=== PATIENT | male | born 1940 | race Caucasian/White ===

== ENCOUNTER 2016-09-27 08:00 | Outpatient (CLI) | payer MEDICARE ==
[2016-09-27 18:45] LABS: EOSINOPHILS # (AUTO) 0.1 10^3/uL (0.0-0.7); EOSINOPHILS % (AUTO) 2.8 %; HGB - HEMOGLOBIN 14.4 g/dL (14.0-18.0); LYMPHOCYTES # (AUTO) 1.4 10^3/uL (1.5-3.5); LYMPHOCYTES % (AUTO) 26.9 %; MEAN CORPUSCULAR HEMOGLOBIN 32.4 pg (27.0-31.0); MEAN CORPUSCULAR HGB CONC 33.4 g/dL (32.0-36.0); MEAN PLATELET VOLUME 8.6 fL (7.4-11.4); MONOCYTES # (AUTO) 0.6 10^3/uL (0.0-1.0); MONOCYTES % (AUTO) 11.8 %; NEUTROPHILS # (AUTO) 2.9 10^3/uL (1.5-6.6); NEUTROPHILS % (AUTO) 57.5 %; NUCLEATED RED BLOOD CELLS AUTO 0.2 /100WBC; RED BLOOD COUNT 4.44 10^6/uL (4.70-6.10); RED CELL DISTRIBUTION WIDTH 14.1 % (12.0-15.0); UNCORRECTED WHITE BLOOD COUNT 5.1 x10^3/uL; WHITE BLOOD COUNT 5.1 x10^3/uL (4.8-10.8)
[2016-09-27 19:37] LABS: ALBUMIN/GLOBULIN RATIO 1.5 (1.0-2.2); BILIRUBIN,TOTAL 0.4 mg/dL (0.2-1.0); BUN - BLOOD UREA NITROGEN 14 mg/dL (6-20); CALCIUM 8.9 mg/dL (8.5-10.3); CARBON DIOXIDE - CO2 25 mmol/L (21-32); CHLORIDE 104 mmol/L (101-111); CREATININE 1.1 mg/dL (0.6-1.2); GFR - MDRD 65 (>89); GLUCOSE 88 mg/dL (70-100); IRON 90 ug/dL (45-182); POTASSIUM 4.6 mmol/L (3.5-5.0); SODIUM 135 mmol/L (135-145); TOTAL IRON BINDING CAPACITY 276 ug/dL (250-450); TOTAL PROTEIN 6.6 g/dL (6.7-8.2); TRANSFERRIN 197 mg/dL (180-329)
[2016-09-27 20:20] LABS: THYROID STIMULATING HORMONE 4.69 uIU/mL (0.34-5.60)
== END 2016-09-27 08:01 | disposition home or self-care (01) ==
LOC: LAB.S 08:00
PROVIDERS: ATTEND Nurse Practitioner Family
DX: I10 Essential (primary) hypertension (principal); R42 Dizziness and giddiness
CPT/HCPCS: 36415; 80053; 82607; 83540; 84443; 84466; 85025

== ENCOUNTER 2017-07-30 14:28 | Emergency (ER) | payer MEDICARE ==
[2017-07-30] MEDS ORDERED: MECLIZINE 12.5 MG TABLET PO STA (15:14)
--- NOTE | 2017-07-30 15:20 | ED Physician Documentation ---
History of Present Illness - Stated complaint Stated Complaint: GLF - Chief complaint Chief Complaint: Neuro - History obtained from History obtained from: Patient, Family (daughter) - History of Present Illness Timing: How many days ago (4) Pain level max: 5 Pain level now: 4 Improved by: remaining still Worsened by: moving - Additonal information Additional information: Patient is a 77-year-old male who lives at home has been feeling off balance for the past 4 days. States that this is happened to him several times in the past and has been told that the "fluid in his ears is out of alignment". He states that it only occurs if he turns his head briskly to one side or the other. He does state that he fell yesterday and bruised his ribs. Does not have much pain there today. He also struck his head at that time. No loss of consciousness. No vomiting. Brought in by his daughter today. He denies any neck or back pain. Denies any numbness or tingling. Review of Systems Ten Systems: 10 systems reviewed and negative Constitutional: denies: Fever, Chills Eyes: denies: Decreased vision, Photophobia Ears: denies: Ear pain Nose: denies: Rhinorrhea / runny nose, Congestion Cardiac: denies: Chest pain / pressure Respiratory: denies: Cough GI: denies: Abdominal Pain, Nausea, Vomiting, Diarrhea Skin: denies: Rash Musculoskeletal: denies: Neck pain, Back pain Neurologic: denies: Focal weakness, Numbness, Seizure, Confused, LOC PD PAST MEDICAL HISTORY - Past Medical History Cardiovascular: Hypertension Respiratory: Other Endocrine/Autoimmune: None GI: None : None HEENT: None Psych: None Musculoskeletal: Osteoarthritis Derm: Other - Past Surgical History Past Surgical History: Yes General: Other Ortho: Hip replacement HEENT: Tonsil/Adenoidectomy - Present Medications Home Medications: Ambulatory Orders Medication Instructions Recorded Confirmed Meclizine [Antivert] 12.5 mg PO Q6H PRN #10 tablet 07/30/17 - Allergies Allergies/Adverse Reactions: Allergies Allergy/AdvReac Type Severity Reaction Status Date / Time Sulfa (Sulfonamide Allergy Unknown Verified 08/23/15 12:16 Antibiotics) - Social History Does the pt smoke?: No Smoking Status: Never smoker Does the pt drink ETOH?: Yes Does the pt have substance abuse?: No - Immunizations Immunizations are current?: No Immunizations: TDAP >10years/unknown PD ED PE NORMAL - Vitals Vital signs reviewed: Yes - General General: Alert and oriented X 3, No acute distress - HEENT HEENT: Atraumatic, PERRL, EOMI, Ears normal, Moist mucous membranes, Pharynx benign, Other (+ hallpike to the L) - Neck Neck: Supple, no meningeal sign - Cardiac Cardiac: RRR - Respiratory Respiratory: No respiratory distress, Clear bilaterally, Other (mild bruising to the lower anterior chest wall, 2 areas 2x2cm. no crepitus. ) - Abdomen Abdomen: Soft, Non tender, Non distended - Derm Derm: Warm and dry - Neuro Neuro: Alert and oriented X 3, company pilot 2-12 intact, No motor deficit, No sensory deficit, Normal speech Eye Opening: Spontaneous Motor: Obeys Commands Verbal: Oriented GCS Score: 15 - Psych Psych: Normal mood, Normal affect Results - Vitals Vitals: Vital Signs - 24 hr 07/30/17 07/30/17 14:30 17:14 Temperature 36.9 C 36.2 C L Heart Rate 88 93 Respiratory 18 18 Rate Blood Pressure 168/80 H 180/104 H O2 Saturation 99 97 Oxygen O2 Source Room air - Labs Labs: Laboratory Tests 07/30/17 07/30/17 07/30/17 15:30 15:53 15:53 WBC 9.4 RBC 4.84 Hgb 15.1 Hct 45.6 MCV 94.2 H MCH 31.1 H MCHC 33.0 RDW 14.3 Plt Count 233 MPV 8.1 Neut # 7.6 H Lymph # 0.9 L [place] # 0.9 Eos # 0.0 Baso # 0.1 Absolute Nucleated RBC 0.00 Nucleated RBC % 0.0 Sodium 134 L Potassium 4.1 Chloride 101 Carbon Dioxide 21 Anion Gap 12.0 BUN 15 Creatinine 1.4 H Estimated GFR (MDRD) 49 L Glucose 121 H Calcium 9.0 Total Bilirubin 1.5 H AST 78 H ALT 31 Alkaline Phosphatase 50 Total Protein 7.0 Albumin 4.5 Globulin 2.5 Albumin/Globulin Ratio 1.8 Lipase 28 Urine Color YELLOW Urine Clarity CLEAR Urine pH 5.5 Ur Specific [place] 1.025 Urine Protein 100 H Urine Glucose (UA) NEGATIVE Urine Ketones 15 H Urine Occult Blood MODERATE H Urine Nitrite NEGATIVE Urine Bilirubin NEGATIVE Urine Urobilinogen 0.2 (NORMAL) Ur Leukocyte Esterase NEGATIVE Urine RBC 0-5 Urine WBC 0-3 Ur Squamous Epith Cells RARE Squamous Amorphous Sediment Few Urine Bacteria None Seen Urine Casts 3-5 Hyaline Casts Urine Mucus Few Strands Ur Microscopic Review INDICATED Urine Culture Comments NOT INDICATED - Rads (name of study) head CT Radiology: Prelim report reviewed, EMP read contemporaneously, See rad report ( No acute intracranial abnormality. Stable mild prominence of the ventricles, likely due to central atrophy. Probable sequela of small vessel ischemic change. ) PD MEDICAL DECISION MAKING - ED course Complexity details: reviewed results, re-evaluated patient, considered differential (No evidence of stroke, tumor, mass, intracranial hemorrhage), d/w patient, d/w family ED course: Patient is a 77-year-old male who presents to the emergency department with what appears to be vertigo, but given that he did fall and strike his head, a head CT was performed that shows no acute abnormalities. He was given meclizine and then asked if he feels felt dizzy. He states he no longer feels dizzy and flung his head back and forth from side to side rapidly approximately 20 times while laying on the bed, turned and looked at me and said "nope, I feel better". Will have him utilize a walker or cane at home. We will have him follow-up with his PCP for further care. Patient and family counseled regarding signs and symptoms for which I believe and urgent re-evaluation would be necessary. Patient with good understanding of and agreement to plan and is comfortable going home at this time This document was made in part using voice recognition software. While efforts are made to proofread this document, sound alike and grammatical errors may occur. Departure - Departure Disposition: Home, Self Care Clinical Impression: Vertigo Fall Qualifiers: Encounter type: initial encounter Qualified Code(s): W19.XXXA - Unspecified fall, initial encounter Condition: Good Instructions: ED Vertigo Unspecified Follow-Up: Rosaline Bergman ARNP [Primary Care Provider] - Within 3 Days Prescriptions: Meclizine [Antivert] 12.5 mg PO Q6H PRN #10 tablet PRN Reason: Vertigo Comments: Return if you worsen. You need to use a cane or a walker at all times until your vertigo resolves. Discharge Date/Time: 07/30/17 17:16
[2017-07-30 15:55] LABS: GLUCOSE, URINE (UA) NEGATIVE (NEGATIVE); KETONES,URINE (UA) 15 mg/dL (NEGATIVE); LEUKOCYTE ESTERASE, URINE NEGATIVE (NEGATIVE); NITRITE,URINE NEGATIVE (NEGATIVE); OCCULT BLOOD,URINE MODERATE (NEGATIVE); PH,URINE 5.5 PH (5.0-7.5); PROTEIN,URINE 100 mg/dL (NEGATIVE); UROBILINOGEN,URINE 0.2 (NORMAL) E.U./dL (NORMAL)
[2017-07-30 15:59] LABS: BILIRUBIN,URINE NEGATIVE (NEGATIVE); CLARITY,URINE CLEAR (CLEAR); ICTOTEST,URINE NEGATIVE
[2017-07-30 15:59] LABS: BASOPHILS # (AUTO) 0.1 10^3/uL (0.0-0.1); BASOPHILS % (AUTO) 0.8 %; EOSINOPHILS % (AUTO) 0.1 %; HGB - HEMOGLOBIN 15.1 g/dL (14.0-18.0); LYMPHOCYTES # (AUTO) 0.9 10^3/uL (1.5-3.5); LYMPHOCYTES % (AUTO) 9.5 %; MEAN CORPUSCULAR HEMOGLOBIN 31.1 pg (27.0-31.0); MEAN CORPUSCULAR VOLUME 94.2 fL (80.0-94.0); MEAN PLATELET VOLUME 8.1 fL (7.4-11.4); MONOCYTES # (AUTO) 0.9 10^3/uL (0.0-1.0); MONOCYTES % (AUTO) 9.5 %; NEUTROPHILS # (AUTO) 7.6 10^3/uL (1.5-6.6); NEUTROPHILS % (AUTO) 80.1 %; PLT - PLATELET COUNT 233 10^3/uL (130-450); RED BLOOD COUNT 4.84 10^6/uL (4.70-6.10); RED CELL DISTRIBUTION WIDTH 14.3 % (12.0-15.0); WHITE BLOOD COUNT 9.4 x10^3/uL (4.8-10.8)
--- NOTE | 2017-07-30 15:59 | CT Report ---
EXAM: CT HEAD EXAM DATE: 07/30/2017 03:38 PM. CLINICAL HISTORY: Off balance, fall, head injury. COMPARISON: 10/12/2010. TECHNIQUE: Multiaxial CT images were obtained from the foramen magnum to the vertex. Reformats: Coron al. IV contrast: None. In accordance with CT protocol optimization, one or more of the following dose reduction techniques w ere utilized for this exam: automated exposure control, adjustment of mA and/or KV based on patient s ize, or use of iterative reconstructive technique. FINDINGS: Parenchyma: No intraparenchymal hemorrhage. No evidence of mass, midline shift, or CT findings of inf arction. [place]-white differentiation is distinct. There is periventricular and subcortical white matte r hypoattenuation, nonspecific but most likely related to the sequela of small vessel ischemic change . Extraaxial Spaces: Stable mild prominence of the ventricles, favor central atrophy. No subdural or ep idural collections identified. Ventricles: Normal in size and position. Sinuses and Orbits: Imaged paranasal sinuses, orbits, and mastoids show no significant abnormality. Bones: No evidence of fracture or calvarial defect. Other: None. IMPRESSION: 1. No acute intracranial abnormality. 2. Stable mild prominence of the ventricles, likely due to central atrophy. 3. Probable sequela of small vessel ischemic change. [facility] Referring Provider Line: [phone] SITE ID: [id number]
[2017-07-30 16:14] LABS: AMORPHOUS SEDIMENT,UR Few /LPF; BACTERIA,URINE None Seen /HPF (None Seen); MUCUS,URINE Few Strands; RBC,URINE 0-5 /HPF (0-5); SQUAMOUS EPITHELIAL CELL,UR RARE Squamous (<= Few)
[2017-07-30 16:22] LABS: ALBUMIN 4.5 g/dL (3.2-5.5); ALBUMIN/GLOBULIN RATIO 1.8 (1.0-2.2); BILIRUBIN,TOTAL 1.5 mg/dL (0.2-1.0); CREATININE 1.4 mg/dL (0.6-1.2)
[2017-07-30 17:15] VITALS: BP 180/104
== END 2017-07-30 17:16 | disposition home or self-care (01) ==
LOC: ED 14:28
DX: R42 Dizziness and giddiness (principal); I10 Essential (primary) hypertension; Z96.649 Presence of unspecified artificial hip joint
CPT/HCPCS: 36415; 70450; 80053; 81001; 83690; 85025; 99283; 99284; A9270; 81003; 87086

== ENCOUNTER 2017-10-15 07:40 | Outpatient (CLI) | payer MEDICARE ==
[2017-10-15] MEDS ORDERED: GADOBUTROL 10 MMOL/10 ML VIAL ONE (07:54)
[2017-10-15] MEDS ORDERED: GADOBUTROL 10 MMOL/10 ML VIAL IVP ONE (08:37)
--- NOTE | 2017-10-17 10:49 | MRI Report ---
Procedure Date: 10/15/2017 Accession Number: [id number] / [id number] Procedure: MRI - IACS W/WO CPT Code: FULL RESULT: EXAM: MRI BRAIN AND INTERNAL AUDITORY CANAL (IAC),WITHOUT AND WITH CONTRAST. EXAM DATE: 10/15/2017 08:56 AM. CLINICAL HISTORY: Dizziness, sensorineural hearing loss of right ear. COMPARISON: CT head w/o 07/30/2017. TECHNIQUE: Multiplanar, multisequence T1-weighted and fluid-sensitive MRI sequences of the brain and IACs were performed. Other: None. IV Contrast: 9 mL Gadavist. FINDINGS: Brain Volume: Moderate diffuse atrophy is present. Parenchyma/Dura: No acute hemorrhage, mass, or acute infarct.Moderate confluent periventricular with patchy deep and subcortical white matter T2 and FLAIR bright signal is seen in the cerebral hemispheres. Mild patchy involvement of the brainstem is noted. No cortical signal abnormality. No abnormal enhancement. Internal Auditory Canals (IACs): Normal. No cranial nerve lesion or inflammatory process identified. The inner ear structure are symmetric and unremarkable. Ventricles/Cisterns: Prominence to the ventricular system and overlying cortical sulci is evident. No acute hydrocephalus. No abnormal extra-axial fluid collection or hemorrhage. Orbits: Symmetric and unremarkable. Sella [place]: The pituitary gland, cavernous sinuses, suprasellar cistern and optic chiasm are unremarkable. Vasculature: Normal signal flow void is seen in the major arterial structures at the skull base. The dural sinuses are patent and enhance normally. Sinuses: No acute sinus disease. Bones: No focal pathologic appearing marrow signal changes. Other: None. IMPRESSION: 1. No acute intracranial abnormality. No acute infarct, mass, hemorrhage, or abnormal enhancement. 2. Moderate diffuse atrophy. White matter T2/FLAIR bright signal is seen in the cerebral hemispheres and to a lesser extent brainstem. This is nonspecific but typically secondary to small vessel ischemic change. 3. Negative MRI of the IAC and posterior fossa. [facility]
== END 2017-10-15 07:41 | disposition home or self-care (01) ==
LOC: DI 07:40
PROVIDERS: ATTEND Otolaryngology
DX: R42 Dizziness and giddiness (principal); H90.A21 Sensorineural hearing loss, unilateral, right ear, with restricted hearing on the contralateral side
CPT/HCPCS: 70543; A9585

== ENCOUNTER 2018-01-09 08:20 | Outpatient (CLI) | payer MEDICARE ==
[2018-01-09 17:19] LABS: BASOPHILS # (AUTO) 0.1 10^3/uL (0.0-0.1); BASOPHILS % (AUTO) 1.3 %; EOSINOPHILS # (AUTO) 0.2 10^3/uL (0.0-0.7); EOSINOPHILS % (AUTO) 4.6 %; HGB - HEMOGLOBIN 14.7 g/dL (14.0-18.0); LYMPHOCYTES # (AUTO) 1.2 10^3/uL (1.5-3.5); LYMPHOCYTES % (AUTO) 28.3 %; MEAN CORPUSCULAR HEMOGLOBIN 31.6 pg (27.0-31.0); MEAN CORPUSCULAR HGB CONC 33.3 g/dL (32.0-36.0); MEAN CORPUSCULAR VOLUME 94.8 fL (80.0-94.0); MEAN PLATELET VOLUME 8.6 fL (7.4-11.4); MONOCYTES # (AUTO) 0.5 10^3/uL (0.0-1.0); MONOCYTES % (AUTO) 11.7 %; NEUTROPHILS # (AUTO) 2.4 10^3/uL (1.5-6.6); NEUTROPHILS % (AUTO) 54.1 %; PLT - PLATELET COUNT 208 10^3/uL (130-450); RED BLOOD COUNT 4.66 10^6/uL (4.70-6.10); RED CELL DISTRIBUTION WIDTH 14.9 % (12.0-15.0); WHITE BLOOD COUNT 4.4 x10^3/uL (4.8-10.8)
[2018-01-09 17:54] LABS: ALBUMIN 4.1 g/dL (3.2-5.5); ALBUMIN/GLOBULIN RATIO 1.7 (1.0-2.2); ALKALINE PHOSPHATASE 50 IU/L (42-121); ALT ALANINE AMINOTRANSFERASE 18 IU/L (10-60); AST ASPARTATE AMINOTRANSFERASE 22 IU/L (10-42); BILIRUBIN,TOTAL 0.7 mg/dL (0.2-1.0); BUN - BLOOD UREA NITROGEN 16 mg/dL (6-20); CARBON DIOXIDE - CO2 27 mmol/L (21-32); CHLORIDE 104 mmol/L (101-111); CHOL/HDL RATIO 2.3 (<5.0); CHOLESTEROL 195 mg/dL; CREATININE 1.2 mg/dL (0.6-1.2); GFR - MDRD 58 (>89); GLUCOSE 101 mg/dL (70-100); HDL CHOLESTEROL 84 mg/dL; LDL CHOLESTEROL,CALCULATED 100 mg/dL; LDL/HDL RATIO 1.2 (<3.6); SODIUM 138 mmol/L (135-145); TOTAL PROTEIN 6.5 g/dL (6.7-8.2); VLDL CHOLESTEROL 11 mg/dL
[2018-01-09 17:57] LABS: THYROID STIMULATING HORMONE 4.09 uIU/mL (0.34-5.60)
[2018-01-09 18:31] LABS: HB2 TOTAL 16.2 g/dL; HEMOGLOBIN A1C 0.63 g/dL; HEMOGLOBIN A1C % 5.7 % (4.6-6.2)
== END 2018-01-09 08:21 | disposition home or self-care (01) ==
LOC: LAB.S 08:20
PROVIDERS: ATTEND Nurse Practitioner Family
DX: I10 Essential (primary) hypertension (principal); Z13.6 Encounter for screening for cardiovascular disorders; E53.8 Deficiency of other specified B group vitamins; R42 Dizziness and giddiness; Z12.5 Encounter for screening for malignant neoplasm of prostate; R26.9 Unspecified abnormalities of gait and mobility
CPT/HCPCS: 36415; 80053; 80061; 82607; 83036; 84443; 85025; G0103; 83721; 84153

== ENCOUNTER 2018-08-26 09:30 | Outpatient (CLI) | payer MEDICARE, OTHER | END 2018-08-26 09:31 | disposition critical access hospital (66) | LOC: EMS 09:30 | PROVIDERS: ATTEND Surgery | DX: R42 Dizziness and giddiness (principal); R03.0 Elevated blood-pressure reading, without diagnosis of hypertension | CPT/HCPCS: A0425; A0429 ==

== ENCOUNTER 2018-08-26 10:01 | Emergency (ER) | payer MEDICARE, OTHER ==
--- NOTE | 2018-08-26 10:17 | ED Physician Documentation ---
History of Present Illness - Stated complaint Stated Complaint: DIZZY - Chief complaint Chief Complaint: General - History obtained from History obtained from: Patient, Family - History of Present Illness Timing: Prior to arrival - Additonal information Additional information: Patient is an 78-year-old male with history of sensorineural hearing loss and recurrent dizziness presenting with dizzy episode earlier this morning that has now resolved. Patient's reported that he has somewhat frequent episodes of room spinning sensation for which he has been evaluated by ENT and other physicians with no specific diagnoses except for benign positional vertigo. Patient did not try meclizine, Dramamine or other medications today. Patient reports that when he moves his head he is often able to resolve the symptoms. Currently, patient denies any symptoms including headache, vision changes, hearing changes, nausea, vomiting, as well as current or recent symptoms of chest pain, difficulty breathing, fever, urine or stool changes. Patient denies any other inciting incident, striking of head, or trauma. No other improving or worsening factors noted. Patient does note history of elevated blood pressures for which he has not been seen by his primary care physician, but is planning to do so. Review of Systems Constitutional: denies: Fever Eyes: denies: Loss of vision Cardiac: denies: Chest pain / pressure Respiratory: denies: Dyspnea Neurologic: denies: Headache, Head injury PD PAST MEDICAL HISTORY - Past Medical History Cardiovascular: Hypertension Respiratory: Other Endocrine/Autoimmune: None GI: None : None HEENT: None Psych: None Musculoskeletal: Osteoarthritis Derm: Other - Past Surgical History Past Surgical History: Yes General: Other Ortho: Hip replacement HEENT: Tonsil/Adenoidectomy - Present Medications Home Medications: Ambulatory Orders Medication Instructions Recorded Confirmed RX: Meclizine [Antivert] 12.5 mg PO Q6H PRN #10 tablet 07/30/17 - Allergies Allergies/Adverse Reactions: Allergies Allergy/AdvReac Type Severity Reaction Status Date / Time Sulfa (Sulfonamide Allergy Unknown Verified 08/26/18 10:09 Antibiotics) - Social History Does the pt smoke?: No Smoking Status: Never smoker Does the pt drink ETOH?: Yes Does the pt have substance abuse?: No - Immunizations Immunizations are current?: No Immunizations: TDAP >10years/unknown PD ED PE NORMAL - Vitals Vital signs reviewed: Yes (Hypertensive-likely chronic and not controlled) - General General: Alert and oriented X 3, No acute distress, Well developed/nourished - HEENT HEENT: Atraumatic, PERRL, EOMI (No nystagmus. Gross visual acuity intact.) - Cardiac Cardiac: RRR, No murmur - Respiratory Respiratory: No respiratory distress, Clear bilaterally - Abdomen Abdomen: Soft, Non tender, Non distended - Derm Derm: Normal color, Warm and dry, No rash - Extremities Extremities: No deformity, No tenderness to palpate - Neuro Neuro: Alert and oriented X 3, No motor deficit, No sensory deficit - Psych Psych: Normal mood, Normal affect Results - Vitals Vitals: Vital Signs - 24 hr 08/26/18 08/26/18 10:05 12:47 Temperature 36.1 C L Heart Rate 64 68 Respiratory 16 14 Rate Blood Pressure 176/99 H 155/93 H O2 Saturation 98 96 Oxygen O2 Source Room air - EKG (time done) 1012 Rate: Rate (enter#) (65) Rhythm: NSR Intervals: Prolonged QT (Mild), RBBB Ischemia: Non specific changes - Labs Labs: Laboratory Tests 08/26/18 08/26/18 08/26/18 10:12 10:12 10:12 WBC 4.7 L RBC 4.69 L Hgb 14.8 Hct 43.9 MCV 93.5 MCH 31.6 H MCHC 33.8 RDW 13.7 Plt Count 201 MPV 7.5 Neut # (Auto) 3.3 Lymph # (Auto) 0.9 L [place] # (Auto) 0.4 Eos # (Auto) 0.1 Baso # (Auto) 0.0 Absolute Nucleated RBC 0.00 Nucleated RBC % 0.1 Sodium 135 Potassium 4.5 Chloride 99 L Carbon Dioxide 24 Anion Gap 12.0 BUN 14 Creatinine 1.2 Estimated GFR (MDRD) 58 L Glucose 119 H Calcium 9.0 Total Bilirubin 0.8 AST 25 ALT 18 Alkaline Phosphatase 48 Troponin I < 0.04 Total Protein 7.1 Albumin 4.3 Globulin 2.8 Albumin/Globulin Ratio 1.5 Lipase 32 PD MEDICAL DECISION MAKING - ED course Complexity details: reviewed old records, reviewed results, re-evaluated patient, considered differential, d/w patient, d/w family ED course: Patient is an 78-year-old male with history of benign positional vertigo and recurrence of such earlier today. Patient did not have syncopal episode, fall, or trauma from this. Physical exam reveals no evidence of trauma, new neurological deficit, or infection. Patient denying any symptoms at this time. Have low suspicion for stroke, sepsis, systemic infection, UTI, AAA, ACS, myocardial infarction, unstable angina, IA, PE, pneumonia, but considered.Patient received meclizine and was able to ambulate throughout the ED without issue. No recurrence of symptoms. EKG, chest x-ray, screening lab work obtained which returned relatively unremarkable except for baseline changes reflective of patient's underlying health, including abnormal chest x-ray from previous pulmonary surgery. Patient and requesting discharge home and feel this is appropriate. Discussed supportive cares at home, return precautions, and appropriate follow-up. Departure - Departure Disposition: 01 Home, Self Care Clinical Impression: Benign positional vertigo Qualifiers: Laterality: unspecified laterality Qualified Code(s): H81.10 - Benign paroxysmal vertigo, unspecified ear Condition: Good Instructions: ED BPV Vertigo Follow-Up: your,doctor [Other] - Within 3 Days Comments: Please continue all home medications as previously instructed. Please contact your primary care physician on Tuesday to establish follow-up to discuss persistent dizziness episodes, as well as elevated blood pressure and possible need for blood pressure medications. Return to ED sooner if experience worsening symptoms or other concerns. Discharge Date/Time: 08/26/18 13:38
[2018-08-26 10:26] LABS: BASOPHILS % (AUTO) 1.1 %; EOSINOPHILS # (AUTO) 0.1 10^3/uL (0.0-0.7); EOSINOPHILS % (AUTO) 1.3 %; HGB - HEMOGLOBIN 14.8 g/dL (14.0-18.0); LYMPHOCYTES # (AUTO) 0.9 10^3/uL (1.5-3.5); LYMPHOCYTES % (AUTO) 19.8 %; MEAN CORPUSCULAR HEMOGLOBIN 31.6 pg (27.0-31.0); MEAN CORPUSCULAR HGB CONC 33.8 g/dL (32.0-36.0); MEAN CORPUSCULAR VOLUME 93.5 fL (80.0-94.0); MEAN PLATELET VOLUME 7.5 fL (7.4-11.4); MONOCYTES # (AUTO) 0.4 10^3/uL (0.0-1.0); MONOCYTES % (AUTO) 8.4 %; NEUTROPHILS # (AUTO) 3.3 10^3/uL (1.5-6.6); NEUTROPHILS % (AUTO) 69.4 %; PLT - PLATELET COUNT 201 10^3/uL (130-450); RED BLOOD COUNT 4.69 10^6/uL (4.70-6.10); RED CELL DISTRIBUTION WIDTH 13.7 % (12.0-15.0); WHITE BLOOD COUNT 4.7 x10^3/uL (4.8-10.8)
[2018-08-26] MEDS ORDERED: MECLIZINE 12.5 MG TABLET PO STA (10:41)
[2018-08-26 10:43] LABS: ALBUMIN 4.3 g/dL (3.2-5.5); ALBUMIN/GLOBULIN RATIO 1.5 (1.0-2.2); BILIRUBIN,TOTAL 0.8 mg/dL (0.2-1.0); CREATININE 1.2 mg/dL (0.6-1.2); TOTAL PROTEIN 7.1 g/dL (6.7-8.2)
[2018-08-26 12:49] VITALS: BP 155/93
--- NOTE | 2018-08-26 13:25 | XRAY Report ---
Reason: dizziness Procedure Date: 08/26/2018 Accession Number: [id number] / [id number] Procedure: XR - Chest 1 View X-Ray CPT Code: 66066 FULL RESULT: EXAM: CHEST RADIOGRAPHY EXAM DATE: 08/26/2018 11:20 AM. CLINICAL HISTORY: Dizziness. COMPARISON: XR CHEST PA AND LAT 08/06/2008 7:42 AM. TECHNIQUE: 1 view. FINDINGS: Lungs/Pleura: Lung volumes are low with elevated right hemidiaphragm, unchanged since prior. There is mild bibasilar atelectasis. No focal opacities evident. No pleural effusion. No pneumothorax. Mediastinum: Within exam limitations, the cardiomediastinal contour is normal. Other: None. IMPRESSION: Low lung volumes with elevated right hemidiaphragm. Mild bibasilar atelectasis. No focal opacity to suggest pneumonia. No pulmonary edema. [facility]
== END 2018-08-26 13:38 | disposition home or self-care (01) ==
LOC: EDUNIT# → ED 10:01
DX: H81.10 Benign paroxysmal vertigo, unspecified ear (principal); I10 Essential (primary) hypertension; I45.2 Bifascicular block; I45.81 Long QT syndrome; H90.5 Unspecified sensorineural hearing loss
CPT/HCPCS: 36415; 71045; 80053; 83690; 84484; 85025; 93005; 99283; A9270

== ENCOUNTER 2020-05-09 08:00 | Outpatient (CLI) | payer MEDICARE, OTHER | END 2020-05-09 23:59 | disposition home or self-care (01) | LOC: LAB.F 08:00 | PROVIDERS: ATTEND Registered Nurse | DX: Z53.9 Procedure and treatment not carried out, unspecified reason (principal) ==

== ENCOUNTER 2020-12-17 05:07 | Outpatient (CLI) | payer MEDICARE, OTHER | END 2020-12-17 05:08 | disposition critical access hospital (66) | LOC: EMS 05:07 | DX: R26.81 Unsteadiness on feet (principal); S50.312A Abrasion of left elbow, initial encounter; S50.311A Abrasion of right elbow, initial encounter; W06.XXXA Fall from bed, initial encounter; Y93.89 Activity, other specified; Y92.003 Bedroom of unspecified non-institutional (private) residence as the place of occurrence of the external cause | CPT/HCPCS: A0425; A0429 ==

== ENCOUNTER 2020-12-17 05:39 | Emergency (ER) | payer MEDICARE, OTHER ==
[2020-12-17] MEDS ORDERED: SODIUM CHLORIDE 0.9% 1,000 ML IV STA (06:01)
[2020-12-17 06:26] LABS: BILIRUBIN,URINE NEGATIVE (NEGATIVE); GLUCOSE, URINE (UA) NEGATIVE (NEGATIVE); KETONES,URINE (UA) NEGATIVE (NEGATIVE); LEUKOCYTE ESTERASE, URINE NEGATIVE (NEGATIVE); NITRITE,URINE NEGATIVE (NEGATIVE); OCCULT BLOOD,URINE NEGATIVE (NEGATIVE); PH,URINE 6.5 PH (5.0-7.5); PROTEIN,URINE NEGATIVE (NEGATIVE); UROBILINOGEN,URINE 0.2 (NORMAL) E.U./dL (NORMAL)
[2020-12-17 06:26] LABS: BASOPHILS # (AUTO) 0.1 10^3/uL (0.0-0.1); BASOPHILS % (AUTO) 0.7 %; EOSINOPHILS # (AUTO) 0.2 10^3/uL (0.0-0.7); HCT - HEMATOCRIT 44.7 % (42.0-52.0); LYMPHOCYTES # (AUTO) 1.3 10^3/uL (1.5-3.5); LYMPHOCYTES % (AUTO) 17.3 %; MEAN CORPUSCULAR HEMOGLOBIN 32.2 pg (27.0-31.0); MEAN CORPUSCULAR HGB CONC 33.6 g/dL (32.0-36.0); MEAN CORPUSCULAR VOLUME 95.9 fL (80.0-94.0); MEAN PLATELET VOLUME 9.7 fL (7.4-11.4); MONOCYTES # (AUTO) 0.7 10^3/uL (0.0-1.0); MONOCYTES % (AUTO) 9.1 %; NEUTROPHILS # (AUTO) 5.4 10^3/uL (1.5-6.6); NEUTROPHILS % (AUTO) 70.6 %; PLT - PLATELET COUNT 200 10^3/uL (130-450); RED BLOOD COUNT 4.66 10^6/uL (4.70-6.10); RED CELL DISTRIBUTION WIDTH 13.4 % (12.0-15.0); WHITE BLOOD COUNT 7.6 x10^3/uL (4.8-10.8)
[2020-12-17 06:27] LABS: CLARITY,URINE CLEAR (CLEAR)
--- NOTE | 2020-12-17 06:34 | ED Physician Documentation ---
History of Present Illness - Stated complaint Stated Complaint: GLF/VERTIGO - Chief complaint Chief Complaint: Neuro - History obtained from History obtained from: Patient, EMS - Additonal information Additional information: Patient is brought to the emergency department by EMS for chief complaint of vertigo and ground-level fall. The patient states that he had gotten up to go the bathroom and was attempting to walk with his walker when he just lost his balance and fell between the bed and the dresser. He does not think that he hit his head, and denies any headache or feeling of bruising. He states that he thinks he may have felt a dizzy sensation in his head but is not sure. According to patient's daughter, the patient will ambulate on a good day but need a lot of assistance on not as good day. The patient states that his only complaint really is that his right shoulder hurts. He has been struggling with a lot of pain in the shoulder from a rotator cuff injury, and states it hurts a little more after the fall. The patient denies any loss of consciousness. He states he was able to scoot himself out from between the bed and the dresser and that when his daughter found him a few minutes later call, she called EMS. The patient denies any neck or back pain. No rib pain. No chest or abdominal pain. No hip or pelvic pain. Patient has bilateral total hip arthroplasties. No focal weakness that is new. No other complaints at this time. He has not been ill with anything recently. Review of Systems Ten Systems: 10 systems reviewed and negative Constitutional: reports: Reviewed and negative Eyes: reports: Reviewed and negative Ears: reports: Reviewed and negative Nose: reports: Reviewed and negative Throat: reports: Reviewed and negative Cardiac: reports: Reviewed and negative Respiratory: reports: Reviewed and negative GI: reports: Reviewed and negative : reports: Reviewed and negative Skin: reports: Reviewed and negative Musculoskeletal: reports: Joint pain Neurologic: reports: Reviewed and negative Psychiatric: reports: Reviewed and negative Endocrine: reports: Reviewed and negative Immunocompromised: reports: Reviewed and negative PD PAST MEDICAL HISTORY - Past Medical History Past Medical History: Yes Cardiovascular: Hypertension Respiratory: Other Neuro: Other Endocrine/Autoimmune: None GI: None : None HEENT: None Psych: None Musculoskeletal: Osteoarthritis Derm: Other Other Past Medical History: vertigo - Past Surgical History Past Surgical History: Yes General: Other Ortho: Hip replacement HEENT: Tonsil/Adenoidectomy - Present Medications Home Medications: Ambulatory Orders Medication Instructions Recorded Confirmed Meclizine [Antivert] 12.5 mg PO Q6H PRN #10 tablet 07/30/17 12/17/20 - Allergies Allergies/Adverse Reactions: Allergies Allergy/AdvReac Type Severity Reaction Status Date / Time Sulfa (Sulfonamide Allergy Unknown Verified 12/17/20 05:44 Antibiotics) - Social History Does the pt smoke?: No Smoking Status: Never smoker Does the pt drink ETOH?: Yes Does the pt have substance abuse?: No - Immunizations Immunizations are current?: No Immunizations: TDAP >10years/unknown PD ED PE NORMAL - Vitals Vital signs reviewed: Yes - General General: No acute distress, Well developed/nourished, Other (Alert, answers questions appropriately.) - HEENT HEENT: Atraumatic (No bruising, swelling, or bony step-off. No tenderness.), PERRL, EOMI, Moist mucous membranes - Neck Neck: Supple, no meningeal sign, No bony TTP - Cardiac Cardiac: RRR, No murmur, Strong equal pulses - Respiratory Respiratory: No respiratory distress, Clear bilaterally - Abdomen Abdomen: Soft, Non tender, Non distended - Back Back: No spinal TTP - Derm Derm: Normal color, Warm and dry, No rash - Extremities Extremities: No deformity, No edema, No calf tenderness / cord - Neuro Neuro: key cutter 2-12 intact, No sensory deficit, Normal speech, Other (Alert, answers questions appropriately. Pt has no focal deficits with regard to strength, movement or ataxia while lying in the bed; however, pt is unsteady on his feet, even just with standing.) - Psych Psych: Normal mood, Normal affect Results - Vitals Vitals: Vital Signs - 24 hr 12/17/20 12/17/20 12/17/20 05:44 05:48 05:57 Temperature 36.3 C L 36.3 C L Heart Rate 71 71 68 Respiratory 21 21 19 Rate Blood Pressure 204/122 H 204/122 H 186/104 H O2 Saturation 98 98 98 12/17/20 12/17/20 12/17/20 06:53 07:28 08:06 Temperature Heart Rate 75 73 78 Respiratory 21 21 16 Rate Blood Pressure 183/96 H 161/91 H 180/100 H O2 Saturation 98 99 99 Oxygen O2 Source Room air - Labs Labs: Laboratory Tests 12/17/20 12/17/20 12/17/20 06:00 06:20 06:20 WBC 7.6 RBC 4.66 L Hgb 15.0 Hct 44.7 MCV 95.9 H MCH 32.2 H MCHC 33.6 RDW 13.4 Plt Count 200 MPV 9.7 Neut # (Auto) 5.4 Lymph # (Auto) 1.3 L [place] # (Auto) 0.7 Eos # (Auto) 0.2 Baso # (Auto) 0.1 Absolute Nucleated RBC 0.00 Nucleated RBC % 0.0 Sodium 136 Potassium 4.1 Chloride 99 L Carbon Dioxide 25 Anion Gap 12.0 BUN 19 Creatinine 1.1 Estimated GFR (MDRD) 64 L Glucose 111 H Calcium 9.3 Total Bilirubin 1.1 H AST 25 ALT 18 Alkaline Phosphatase 47 Total Protein 7.0 Albumin 4.3 Globulin 2.7 Albumin/Globulin Ratio 1.6 Lipase 37 Urine Color YELLOW Urine Clarity CLEAR Urine pH 6.5 Ur Specific [place] 1.010 Urine Protein NEGATIVE Urine Glucose (UA) NEGATIVE Urine Ketones NEGATIVE Urine Occult Blood NEGATIVE Urine Nitrite NEGATIVE Urine Bilirubin NEGATIVE Urine Urobilinogen 0.2 (NORMAL) Ur Leukocyte Esterase NEGATIVE Ur Microscopic Review NOT INDICATED Urine Culture Comments NOT INDICATED PD MEDICAL DECISION MAKING - ED course Complexity details: reviewed results, re-evaluated patient, considered differential, d/w patient ED course: The patient was given a liter of 0.9 normal saline and worked up with labs, urinalysis, and head CT, as well as x-ray of the shoulder. Labs and UA were unremarkable. Pt was signed out to Dr. Gutierrez at change of shift, pending final radiology results and re-evaluation in daughter's presence before final disposition. Departure - Departure Disposition: 01 Home, Self Care Clinical Impression: Dizziness, Fall, Vertigo Condition: Stable Instructions: ED Vertigo Unspecified Comments: Call your doctor to arrange a follow-up appointment, make the next available appointment. In the interim, return anytime if worse or if new symptoms develop. Discharge Date/Time: 12/17/20 08:06
[2020-12-17 06:38] LABS: ALBUMIN 4.3 g/dL (3.2-5.5); ALBUMIN/GLOBULIN RATIO 1.6 (1.0-2.2); BILIRUBIN,TOTAL 1.1 mg/dL (0.2-1.0); CALCIUM 9.3 mg/dL (8.5-10.3); CREATININE 1.1 mg/dL (0.6-1.2); POTASSIUM 4.1 mmol/L (3.5-5.0)
--- NOTE | 2020-12-17 07:34 | ED Physician Documentation ---
ED Addendum - Addendum Addendum: 12/17/20 07:[address] Porter at shift change. Briefly this is an elderly gentleman who usually his , she was recently diagnosed with an ovarian cyst and is currently at [facility]. Patient states he got up too quick last night and turned his head and subsequently fell. Then for a while after turning his head quickly he was vertiginous and could not get up on his own. At shift change we were waiting reads on CT of the head and a right shoulder x-ray. CT of the head was read without acute intracranial abnormality. Right shoulder x-ray is concerning for a right humeral head fracture. Patient was seen and examined at the bedside with his daughter at the bedside. He states his shoulder is no more painful and he has no worse range of motion than any other day. He declined further imaging, given that this would be a conservatively managed fracture that is probably fine. He is eager to go home but there is a question of whether or not he is stable on his feet to do so. We will get him up with his walker and have his daughter evaluate whether or not he is at his baseline ambulation kasper. 12/17/20 08:00 He was able to ambulate with his walker. He feels that he is walking at his baseline and as long no longer dizzy. His daughter is at the bedside and agrees and is taking him home. Disposition: Discharged home Condition: Stable Diagnosis: 1. Vertigo 2. Head injury 3. Fall
[2020-12-17 08:07] VITALS: BP 180/100
--- NOTE | 2020-12-17 08:12 | XRAY Report ---
PROCEDURE: Shoulder 2 View RT INDICATIONS: Pain after fall TECHNIQUE: 2 views of the shoulder were acquired. COMPARISON: December 17, 2020. FINDINGS: Bones: Sclerosis of the humeral head/neck junction, which may reflect a healing nondisplaced fracture versus osteophytosis. The remaining visualized osseous structures appear maintained. No suspicious bony lesions. Soft tissues: No suspicious soft tissue calcifications. IMPRESSION: Sclerosis of the humeral head/neck junction, which may reflect a healing fracture versus osteophytosis. If the patient's pain persists, consider CT or MR imaging. Reviewed by: Timbo Rodriguez MD on 12/17/2020 8:10 AM PDT Approved by: Timbo Rodriguez MD on 12/17/2020 8:10 AM PDT Station ID: [id number]
--- NOTE | 2020-12-17 08:29 | CT Report ---
PROCEDURE: HEAD WO INDICATIONS: Vertigo, fall TECHNIQUE: Noncontrast 4.5 mm thick angled axial sections acquired from the foramen magnum to the vertex. For r adiation dose reduction, the following was used: automated exposure control, adjustment of mA and/or kV according to patient size. COMPARISON: July 30, 2017. FINDINGS: BRAIN PARENCHYMA: Prominence of the cortical sulci, likely secondary to age-related atrophy. No acute cortical based (large territory) infarction, intracranial hemorrhage, mass or mass effect, or abnorm al fluid collection. White matter hypoattenuation, which may represent the sequelae of microvascular ischemic disease. The density in the larger dural venous sinuses is grossly normal. VENTRICLES: Normal in size, shape, and position. BONES/SINUSES: The skull base and calvarium demonstrate no acute abnormality. The paranasal sinuses a nd mastoid air cells are well aerated. IMPRESSION: 1.No acute intracranial abnormality. Reviewed by: Timbo Rodriguez MD on 12/17/2020 8:28 AM PDT Approved by: Timbo Rodriguez MD on 12/17/2020 8:28 AM PDT Station ID: [id number]
== END 2020-12-17 08:06 | disposition home or self-care (01) ==
LOC: EDBD → EDUNIT# → ED 05:39
DX: S09.90XA Unspecified injury of head, initial encounter (principal); W18.39XA Other fall on same level, initial encounter; R42 Dizziness and giddiness; R26.81 Unsteadiness on feet; Z91.81 History of falling; I10 Essential (primary) hypertension
CPT/HCPCS: 36415; 80053; 81001; 81003; 83690; 85025; 87086; 99283; 99284

== ENCOUNTER 2022-02-05 10:59 | Outpatient (CLI) | payer MEDICARE, OTHER | END 2022-02-05 11:00 | disposition critical access hospital (66) | LOC: EMS 10:59 | DX: R47.9 Unspecified speech disturbances (principal); R53.1 Weakness; R29.810 Facial weakness | CPT/HCPCS: A0425; A0429 ==

== ENCOUNTER 2022-02-05 11:25 | Observation (INO) | payer MEDICARE, OTHER ==
[2022-02-05 11:40] LABS: BASOPHILS # (AUTO) 0.1 10^3/uL (0.0-0.1); BASOPHILS % (AUTO) 0.7 %; EOSINOPHILS # (AUTO) 0.2 10^3/uL (0.0-0.7); EOSINOPHILS % (AUTO) 2.8 %; HCT - HEMATOCRIT 39.9 % (42.0-52.0); HGB - HEMOGLOBIN 13.1 g/dL (14.0-18.0); LYMPHOCYTES # (AUTO) 1.7 10^3/uL (1.5-3.5); LYMPHOCYTES % (AUTO) 23.8 %; MEAN CORPUSCULAR HGB CONC 32.8 g/dL (32.0-36.0); MEAN CORPUSCULAR VOLUME 94.3 fL (80.0-94.0); MEAN PLATELET VOLUME 9.6 fL (7.4-11.4); MONOCYTES # (AUTO) 0.7 10^3/uL (0.0-1.0); MONOCYTES % (AUTO) 9.7 %; NEUTROPHILS # (AUTO) 4.5 10^3/uL (1.5-6.6); NEUTROPHILS % (AUTO) 62.9 %; PLT - PLATELET COUNT 253 10^3/uL (130-450); RED BLOOD COUNT 4.23 10^6/uL (4.70-6.10); RED CELL DISTRIBUTION WIDTH 13.5 % (12.0-15.0); WHITE BLOOD COUNT 7.2 x10^3/uL (4.8-10.8)
[2022-02-05 11:46] LABS: PT - PROTHROMBIN TIME 11.1 secs (9.9-12.6)
--- NOTE | 2022-02-05 11:51 | CT Report ---
PROCEDURE: Head W/O Stroke Protocol INDICATIONS: expressive aphasia, R sided weakness TECHNIQUE: Noncontrast 4.5 mm thick angled axial sections acquired from the foramen magnum to the vertex, with c oronal reformats. For radiation dose reduction, the following was used: automated exposure control, adjustment of mA and/or kV according to patient size. COMPARISON: FINDINGS: Image quality: Excellent. CSF spaces: Basal cisterns are patent. No extra-axial fluid collections. Ventricles are prominent but symmetric. Brain: No midline shift. No intracranial masses or hemorrhage. [place]-white matter interface is norm al. Moderate age-related cerebral cortical volume loss and periventricular white matter hypodensitie s. Skull and face: Calvarium and visualized facial bones are intact, without suspicious lesions. Sinuses: Visualized sinuses and mastoids are clear. IMPRESSION: 1. No CT evidence of acute process. 2. Age-related cortical volume loss and microvascular ischemic changes. 3. Discussed with Dr. Gonsalez in the emergency room at 1148 hours. This study fulfills neurological imaging criteria for inclusion or exclusion of acute stroke therapie s based on available published neurological imaging guidelines. Reviewed by: Roselyn Alonso MD on 02/05/2022 11:49 AM PST Approved by: Roselyn Alonso MD on 02/05/2022 11:49 AM PST Station ID: [id number]
[2022-02-05 11:53] LABS: ALBUMIN 4.1 g/dL (3.2-5.5); ALBUMIN/GLOBULIN RATIO 1.6 (1.0-2.2); BILIRUBIN,TOTAL 0.6 mg/dL (0.2-1.0); CALCIUM 9.3 mg/dL (8.5-10.3); CREATININE 1.1 mg/dL (0.6-1.2); POTASSIUM 4.4 mmol/L (3.5-5.0); TOTAL PROTEIN 6.6 g/dL (6.7-8.2)
[2022-02-05] MEDS ORDERED: ASPIRIN CHEW 81 MG TABLET PO STA (12:04)
--- NOTE | 2022-02-05 12:08 | ED Physician Documentation ---
PD HPI FOCAL NEURO - Stated complaint Stated Complaint: CODE STROKE - Chief complaint Chief Complaint: Neuro - History obtained from History obtained from: Patient, EMS - History of Present Illness Timing - onset: How many hours ago (1) Timing - duration: Hours (1) Timing - details: Abrupt onset Weakness: Arm, Leg, Right Associated symptoms: No: Headache, Nausea / vomiting, Seizure, Fall, Head injury Contributing factors: negative: Anticoagulated, Atrial fibrillation Baseline status: positive: A&OX3, ambulatory, indep Similar symptoms before: Has not had sx before - Additional information Additional information: Patient is an 81-year-old male brought in by EMS. He was last seen normal about an hour prior to arrival. He was noted to have expressive aphasia, right-sided weakness. Unable to speak. No prior history of same per EMS. Patient unable to give any history. Patient can shake his head yes or no in response to questions Review of Systems Ten Systems: 10 systems reviewed and negative Constitutional: denies: Fever, Chills Ears: denies: Ear pain Nose: denies: Rhinorrhea / runny nose, Congestion Throat: denies: Sore throat Cardiac: denies: Chest pain / pressure, Palpitations Respiratory: denies: Dyspnea, Cough GI: denies: Nausea, Vomiting, Diarrhea PD PAST MEDICAL HISTORY - Past Medical History Cardiovascular: Hypertension Respiratory: Other Neuro: Other Endocrine/Autoimmune: None GI: None : None HEENT: None Psych: None Musculoskeletal: Osteoarthritis Derm: Other - Past Surgical History Past Surgical History: Yes General: Other Ortho: Hip replacement HEENT: Tonsil/Adenoidectomy - Present Medications Home Medications: Ambulatory Orders Medication Instructions Recorded Confirmed Finasteride [Proscar] 5 mg PO DAILY 02/05/22 02/05/22 amLODIPine [Norvasc] 5 mg PO DAILY 02/05/22 02/05/22 - Allergies Allergies/Adverse Reactions: Allergies Allergy/AdvReac Type Severity Reaction Status Date / Time Sulfa (Sulfonamide Allergy Unknown Verified 12/17/20 05:44 Antibiotics) - Social History Does the pt smoke?: No Smoking Status: Never smoker Does the pt drink ETOH?: Yes Does the pt have substance abuse?: No - Immunizations Immunizations are current?: No Immunizations: TDAP >10years/unknown PD ED PE NORMAL - Vitals Vital signs reviewed: Yes - General General: No acute distress, Well developed/nourished, Other (Alert, severe expressive aphasia) - HEENT HEENT: Atraumatic, PERRL, Ears normal, Moist mucous membranes, Pharynx benign - Neck Neck: Supple, no meningeal sign - Cardiac Cardiac: RRR, Strong equal pulses - Respiratory Respiratory: No respiratory distress, Clear bilaterally - Abdomen Abdomen: Soft, Non tender, Non distended - Back Back: No spinal TTP - Derm Derm: Warm and dry - Extremities Extremities: No edema, No calf tenderness / cord - Neuro Neuro: Other (Alert) - Psych Psych: Normal mood, Normal affect NIHSS - Time Time: 11:28 - Level of Consciousness Level of consciousness: (0) Alert, Keenly responsive LOC Questions: (2) Answers neither correct LOC Commands: (1) Performs one correctly - Gaze Best Gaze: (0) Normal - Visual Visual: (0) No loss - Facial Palsy Facial Palsy: (1) Minor paralysis - Motor Arms (both separate) Motor Arm (right): (1) Drift Motor Arm (left): (0) No drift - Motor Legs (both separate) Motor Leg (right): (1) Drift Motor Leg (left): (0) No drift - Limb Ataxia Limb Ataxia: (0) Absent - Sensory Sensory: (0) Normal - Best Language Best Language: (2) Severe aphasia - Dysarthria Dysarthria: (2) Severe dysarthria Results - Vitals Vitals: Vital Signs - 24 hr 02/05/22 02/05/22 11:25 12:06 Temperature 37.0 C 36.8 C Heart Rate 68 68 Respiratory 18 18 Rate Blood Pressure 158/85 H 158/85 H O2 Saturation 68 L 100 Oxygen O2 Source Room air - EKG (time done) 1144 Rate: Rate (enter#) (71) Rhythm: NSR Enterprise: Anterior hemiblock (LAFB) Intervals: RBBB - Labs Labs: Laboratory Tests 02/05/22 02/05/22 02/05/22 11:32 11:32 11:32 WBC 7.2 RBC 4.23 L Hgb 13.1 L Hct 39.9 L MCV 94.3 H MCH 31.0 MCHC 32.8 RDW 13.5 Plt Count 253 MPV 9.6 Neut # (Auto) 4.5 Lymph # (Auto) 1.7 Emanuel # (Auto) 0.7 Eos # (Auto) 0.2 Baso # (Auto) 0.1 Absolute Nucleated RBC 0.00 Nucleated RBC % 0.0 PT 11.1 INR 1.0 Sodium 136 Potassium 4.4 Chloride 101 Carbon Dioxide 26 Anion Gap 9.0 BUN 16 Creatinine 1.1 Estimated GFR (MDRD) 64 L Glucose 123 H Calcium 9.3 Total Bilirubin 0.6 AST 25 ALT 19 Alkaline Phosphatase 59 Total Protein 6.6 L Albumin 4.1 Globulin 2.5 Albumin/Globulin Ratio 1.6 Lipase 35 Nasal Adenovirus (PCR) Nasal B. parapertussis DNA (PCR) Nasal Coronavir 229E PCR Nasal Coronavir HKU1 PCR Nasal Coronavir NL63 PCR Nasal Coronavir OC43 PCR Nasal Enterovir/Rhinovir PCR Nasal Influenza B PCR Nasal Influenza A PCR Nasal Parainfluen 1 PCR Nasal Parainfluen 2 PCR Nasal Parainfluen 3 PCR Nasal Parainfluen 4 PCR Nasal RSV (PCR) Nasal B.pertussis DNA PCR Nasal C.pneumoniae (PCR) [place]ito Human Metapneumo PCR Nasal M.pneumoniae (PCR) Nasal SARS-CoV-2 (PCR) 02/05/22 12:28 WBC RBC Hgb Hct MCV MCH MCHC RDW Plt Count MPV Neut # (Auto) Lymph # (Auto) Emanuel # (Auto) Eos # (Auto) Baso # (Auto) Absolute Nucleated RBC Nucleated RBC % PT INR Sodium Potassium Chloride Carbon Dioxide Anion Gap BUN Creatinine Estimated GFR (MDRD) Glucose Calcium Total Bilirubin AST ALT Alkaline Phosphatase Total Protein Albumin Globulin Albumin/Globulin Ratio Lipase Nasal Adenovirus (PCR) NOT DETECTED Nasal B. parapertussis DNA (PCR) NOT DETECTED Nasal Coronavir 229E PCR NOT DETECTED Nasal Coronavir HKU1 PCR NOT DETECTED Nasal Coronavir NL63 PCR NOT DETECTED Nasal Coronavir OC43 PCR NOT DETECTED Nasal Enterovir/Rhinovir PCR NOT DETECTED Nasal Influenza B PCR NOT DETECTED Nasal Influenza A PCR NOT DETECTED Nasal Parainfluen 1 PCR NOT DETECTED Nasal Parainfluen 2 PCR NOT DETECTED Nasal Parainfluen 3 PCR NOT DETECTED Nasal Parainfluen 4 PCR NOT DETECTED Nasal RSV (PCR) NOT DETECTED Nasal B.pertussis DNA PCR NOT DETECTED Nasal C.pneumoniae (PCR) NOT DETECTED Gallito Human Metapneumo PCR NOT DETECTED Nasal M.pneumoniae (PCR) NOT DETECTED Nasal SARS-CoV-2 (PCR) NOT DETECTED - Rads (name of study) CT head Radiology: Final report received, EMP read contemporaneously, See rad report CT angio head Radiology: Final report received, EMP read contemporaneously, See rad report CT angio neck Radiology: Final report received, EMP read contemporaneously, See rad report PD MEDICAL DECISION MAKING - ED course Complexity details: reviewed results, re-evaluated patient, considered diff erential, d/w patient, d/w family, d/w virtualization consultant ED course: No acute abnormalities on CT scan of the head. No acute abnormalities on angiogram of the head and neck. When the patient returned from CT scan his symptoms had completely resolved. No visual deficits. No further speech deficits. 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 No weakness. Patient was activated as a code stroke. I did speak with telestroke neurology. They recommend placing the patient in observation tonight for MRI and completing a TIA work-up. Patient was given aspirin here. We will place in observation for further care. Discussed the case with Dr. Raymond, hospitalist who accepts. Brain MRI also shows no acute abnormalities. This document was made in part using voice recognition software. While efforts are made to proofread this document, sound alike and grammatical errors may occur. Departure - Departure Disposition: ED Place in Observation Clinical Impression: TIA (transient ischemic attack) Condition: Stable
--- NOTE | 2022-02-05 12:14 | CT Report ---
PROCEDURE: ANGIO NECK W INDICATIONS: expressive aphasia, R sided weakness CONTRAST: 80ml omni 300 TECHNIQUE: After the administration of intravenous contrast, 1.5 mm axial sections acquired from the aortic arch to the [place] of [place]. Coronal 3-D maximum intensity projection (MIP) and/or volume rendering ref ormats were then performed. For radiation dose reduction, the following was used: automated exposur e control, adjustment of mA and/or kV according to patient size. COMPARISON: CTA head from the same time, noncontrast CT head from the same date. FINDINGS: Image quality: Excellent. Carotid system: The great vessels demonstrate a conventional anatomy as they arise from the aortic a rch. The origins of the common carotid arteries appear patent. The common carotid arteries demonstr ate normal calibers and courses. There are dense bilateral carotid bifurcation calcifications. There are mild bilateral calcified less than 50% proximal internal carotid artery stenoses. The left ventri aamir internal carotid is quite tortuous and deviates to the midline at the level of C2 and C3 vertebra l bodies. Posterior circulation: The origins of the vertebral arteries appear patent. The more superior porti ons of the vertebral arteries demonstrate normal course and caliber. They join to form a normal appe aring basilar artery. Soft tissues: Visualized neck soft tissues demonstrate no suspicious abnormalities. Thyroid is has a small, subcentimeter left thyroid nodule. Bones: No suspicious bony lesions. Visualized cervical spine appears normally aligned. IMPRESSION: 1. 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 2. Ectopic location of cervical left carotid, medially deviated, directly anterior to C2 and C3 verte bral bodies. Above discussed with Andreas Gonsalez MD at the time of dictation on 02/05/2022 at 1212 hours. The estimate of stenosis included in the report of the imaging study was calculated using the NASCET method CLINICAL RECOMMENDATION STATEMENTS: In patients <35 years with an ITN detected on CT, MRI, or extrathyroidal ultrasound, the Committee re commends further evaluation with dedicated thyroid ultrasound if the nodule is "e1 cm and has no susp icious imaging features, and if the patient has normal life expectancy. In patients "e35 years with an ITN detected on CT, MRI, or extrathyroidal ultrasound, the Committee r ecommends further evaluation with dedicated thyroid ultrasound if the nodule is "e1.5 cm and has no s uspicious imaging features, and if the patient has normal life expectancy. (ACR, 2014) Reviewed by: Frederic Brunson MD on 02/05/2022 12:12 PM PST Approved by: Frederic Brunson MD on 02/05/2022 12:12 PM PST Station ID: [id number]
--- NOTE | 2022-02-05 12:14 | CT Report ---
PROCEDURE: ANGIO HEAD W/WO INDICATIONS: expressive aphasia, R sided weakness CONTRAST: 80ml omni 300 TECHNIQUE: After the administration of intravenous contrast, 1 mm thick sections acquired through the [place] of [place]. Postcontrast 4.5 mm thick sections then re-acquired from the foramen magnum to the vertex. 3-dimensional zmeavjj-ocomhainp-xgdekhbsiu (MIP) and/or volume rendering reformats were acquired of t central intracranial vasculature. For radiation dose reduction, the following was used: automate d exposure control, adjustment of mA and/or kV according to patient size. COMPARISON: CT head without contrast dated 02/05/2022, CTA Head Neck at the same time as this study. FINDINGS: Image quality: Excellent. CT HEAD: No acute stroke or hemorrhage. No masses. Age-related volume loss and moderate small vessel ischemic change. Anterior circulation: Intracranial internal carotid arteries are normal in size and flow. The flow within the paired anterior cerebral arteries is normal and symmetric. The flow within the middle cer ebral arteries is normal and symmetric. The anterior communicating artery is seen. No aneurysms are seen. Posterior circulation: Visualized portions of the vertebral arteries demonstrate normal caliber, and join to form a normal appearing basilar artery. Flow within the posterior cerebral arteries is norm al and symmetric. No aneurysms are seen. CSF spaces: Ventricles are normal in size and shape. Basal cisterns are patent. No extra-axial flu id collections. Brain: No midline shift. No intracranial bleeds or masses. [place]-white matter interface appears int act. Skull and face: Calvarium and facial bones appear intact, without suspicious lesions. Sinuses: Visualized sinuses and mastoids are clear. IMPRESSION: 1. Age-related volume loss and moderate small vessel ischemic change. 2. No evidence acute stroke, hemorrhage, or mass. 3. Unremarkable CTA head. No stenosis, aneurysm, occlusion, or focal filling defect. Comment: Please refer to separate report for CT angiography of the neck findings. Above discussed with Andreas Gonsalez MD at the time of dictation on 02/05/2022 at 1212 hours. Reviewed by: Frederic Brunson MD on 02/05/2022 12:13 PM PST Approved by: Frederic Brunson MD on 02/05/2022 12:13 PM PST Station ID: [id number]
[2022-02-05] MEDS ORDERED: ONDANSETRON 4 MG/2 ML VIAL IVP PRN (12:39)
[2022-02-05] MEDS ORDERED: ACETAMINOPHEN 325 MG TABLET PO PRN (12:39)
[2022-02-05] MEDS ORDERED: ONDANSETRON ODT 4 MG TABLET TL PRN (12:39)
[2022-02-05] MEDS ORDERED: oxyCODONE 5 MG TABLET PO PRN (12:39)
[2022-02-05] MEDS ORDERED: SODIUM CHLORIDE FLUSH 0.9% 10 ML SYRINGE IVP PRN (12:39)
[2022-02-05] MEDS ORDERED: iohexoL-300 100 ML VIAL IVP ONE (12:43)
--- NOTE | 2022-02-05 12:49 | HISTORY & PHYSICAL EXAMINATION ---
Chief Complaint - Chief Complaint Chief Complaint: Expressive aphagia, right sided weakness History of Present Illness - Admitted From Admitted From:: Emergency Department - History Obtained From Records Reviewed: Yes History obtained from: [facility] and patient's - History of Present Illness HPI Comment/Other: Elbert is an 81yo male with a history significant for hypertension, hyperlipidemia, and a positive family history for stroke. He was brought to the ED by EMS for right sided weakness, he was unable to speak. The ED workup included a head CT, Angiogram of the head and neck. When he returned to the ED from CT his symptoms had completely resolved. He was given an aspirin in the ED, telestroke was consulted and recommended observation tonight, MRI and TIA workup. Head CT: no CT evidence of acute process, age related cortical volume loss and microvascular ischemic changes Head CTA: age related volume loss, moderate small vessel ischemic change. No evidence of acute stroke, hemorrhage, or mass. Unremarkable for stenosis, aneurysm, occlusion or focal filling defect. Neck CTA: mild bilateral less than 50% calcified proximal internal carotid artery stenoses. ectopic location of cervical left carotid, medially deviated, directly anterior to C2 and C3 vertebral bodies His medical history includes dementia, chronic gait ataxia, chronic osteoarthritis, gout, BPH, deafness, obstructive sleep apnea, chronic chlorine gas inhalation. I was able to get his history from his , as Elbert's dementia has progressed so much that he was completely unaware of where he was or why he was here when I spoke with him. His says he has never had symptoms like this before. She denies that he complained of any associated symptoms including nausea, vomiting, headache, seizure, fall, head injury. His long term care phlebotomist dizziness is treated with Antivert. His BPH is managed with finasteride and his hypertension is managed with amlodipine. His has been told that his dementia might be attributed to the fact that he has had 7 hip surgeries that he was under anesthesia for hours at a time each surgery. He was a heavy drinker until his 60s, his said he used to drink Whisky but she could not remember about how many drinks per day he would have at that time. Now he drinks one glass of wine per night. His short term memory loss started in his mid 70s, worse by age 76. It manifested as irritability and long and short term memory loss. He was evaluated by the [facility] neurology as well as neuropsych testing October 2017 at [facility]. There was no clear evidence of neurodegenerative disorder with fairly intact cognition at that time. He started on Donazepil October 2020 and he was referred to memory and brain wellness center at [facility] November 2020. There is no report in his chart on the outcome of that referral. His says that in March 2022 Elbert is moving to a mcfp in [place], and his will be going to [place] for three months to decompress. She has been his multimedia assistant welcome center agent since his dementia started around 70 years ago. History - Past Medical History Cardiovascular: reports: Hypertension, High cholesterol Respiratory: reports: Sleep apnea (manifested by daytime sleepiness and snoring. 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 Umbilical hernia repair.) HEENT: reports: Tonsil/Adenoidectomy - Family & Social History Family History: Mother: (one brother with lung disease), CAD (father may have had a stroke at the end of his life), Father: , CAD, Brother: Family History Comment/Other: 2 daughters, both alive and healthy Living arrangement: At home Living Situation: With spouse/s.o. Social History Notes: Elbert currently lives at home with his . In March 2022 he is moving to a mcf[facility] in [place], [place] - Substance History Use: Uses substance without health or social issues: Tobacco (smoked for 14-15 years, quit in 1963) Abuse: Recurrent use of substance despite neg consequences: Alcohol (History of heavy alcohol use until his 60s, now has 1 glass of wine per night) - POLST Patient has POLST: No POLST Status: DNR Meds/Allgy - Home Medications Home Medications: Ambulatory Orders Medication Instructions Recorded Confirmed Finasteride [Proscar] 5 mg PO DAILY 02/05/22 02/05/22 amLODIPine [Norvasc] 5 mg PO DAILY 02/05/22 02/05/22 - Allergies Allergies/Adverse Reactions: Allergies Allergy/AdvReac Type Severity Reaction Status Date / Time Sulfa (Sulfonamide Allergy Unknown Verified 12/17/20 05:44 Antibiotics) Review of Systems - Constitutional Constitutional: denies: Fever, Chills - Eyes Eyes: denies: Blurred vision, Spots in vision - Ears, Nose & Throat Ears, Nose & Throat: denies: Ear pain, Nasal discharge, Nasal congestion, Sore throat - Cardiovascular Cariovascular: denies: Palpitations, Chest pain - Respiratory Respiratory: denies: Cough - Gastrointestinal Gastrointestinal: denies: Diarrhea, Nausea, Vomiting - Neurological Neurological: denies: General weakness, Focal weakness, Dizziness, Slurred speech - All Other Systems All Other Systems: reports: Reviewed and negative Prior Level of Functionality: Elbert has dementia with very short term memory loss. I saw him 2 hours after he presented to the ED for right sided weakness and he had no recollection at all of TIA symptoms. He has long and short term memory loss and sometimes manifests as irritability. He has chronic dizziness and is supposed to use a walker to ambulate. He can get up and walk himself, he is incontinent. Exam - Vital Signs Vital Signs: Vital Signs x48h Temp Pulse Resp BP Pulse Ox 02/05/22 12:06 36.8 C 68 18 158/85 H 100 - Physical Exam General Appearance: positive: No acute distress, Alert Eyes Bilateral: positive: PERRL, EOMI ENT: positive: No signs of dehydration Neck: positive: No JVD. negative: Lymphadenopathy (R), Lymphadenopathy (L) Respiratory: positive: Chest non-tender, No respiratory distress, Breath sounds nml Cardiovascular: positive: Regular rate & rhythm Peripheral Pulses: positive: 2+ Abdomen: positive: Non-tender, No distention Skin: positive: Warm, Dry Neurologic/Psychiatric: positive: CN's nml (2-12), Disoriented to place, Disoriented to time, Other (No focal defecits). negative: Weakness, Facial droop, Slurred/abnml speech Sepsis Event Note (H) - Evaluation Current Stage of Sepsis: Ruled out Conclusion/Plan - Problem List (1) TIA (transient ischemic attack) Conclusion/Plan: Elbert was brought in the ED by EMS today at 11:25 with a code stroke. When he p resented he had right sided weakness and had severe dysarthria and was unable to speak. His head CT, and head and neck CTA showed no signs of a stroke. By the time he returned from CT, his symptoms had completely resolved. His ABCD score was 6, which indicates high risk for stroke. The ED consulted with telestroke who recommended observation overnight and a TIA workup. With his presenting symptoms I considered TIA, Stroke, seizure, tumor however TIA is the most likley cause due to his risk factors of hypertension, hyperlipidemia, history of alcohol abuse and positive family history for cardiovascular disease and stroke. When I examined him he had no focal deficits and his NIHSS score was 3. In the ED his acute workup included CMP, CBC, coags, CT and CTA of head and neck. CT and CTA showed no signs of stroke. BUN is at 64, but this is table from previous labwork going back to 2018. Glucose elevated at 123, but he has no formal history of diabetes mellitus. PT and INR are within normal limits. I will screen for risk factors for stroke including hyperlipidemia and afib. Plan - MRI tomorrow - Echo to be performed, however the technical maintenance technician is out today and will not be back until next week. He should get an outpatient Echo if we are unable to do it during his stay. - fasting lipid panel tomorrow - continue aspirin daily for at least 30 days - Start clopidogrel tomorrow, he should take ASA + clopidogrel for 1 month then discontinue one. - Start Telemetry (2) Hypertension Conclusion/Plan: His hypertension is currently managed with amlodipine 5mg qd. Today his serial vital signs have been elevated for BP at 158/85, and 144/89. We will continue to manage his htn with amlodipine. Qualifiers: Hypertension type: primary hypertension Qualified Code(s): I10 - Essential (primary) hypertension (3) Hyperlipidemia Conclusion/Plan: He has a history of hyperlipidemia in his chart but he is not currently on a statin. This could increase his risk of stroke, I will review a fasting lipid panel tomorrow and reevaluate treatment. Qualifiers: Hyperlipidemia type: unspecified Qualified Code(s): E78.5 - Hyperlipidemia, unspecified (4) Dementia Conclusion/Plan: Elbert has had dementia for about 10 years, starting in his mid 70's with short ter m memory loss and progressing quickly until he was 76. Now he has short term and long term care phlebotomist memory loss. His history of alcohol abuse or vascular dementia may be the cause of this. His attributes it to his 7 long hip surgeries and the sedation he received for each of those. He is not currently taking any medication to manage symptoms, he lives at home with his currently but in March 2022 he will be moving to a memory m[facility] in [place], [place]. 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 He uses a cane and a walker for ambulation normally. - Lab Results Fish Bones: 02/05/22 11:32 02/05/22 11:32 Core Measures - DVT/VTE - Prophylaxis VTE/DVT Prophylaxis med ordered at admit?: Yes
[2022-02-05 13:42] LABS: B. PARAPERTUSSIS- RESP PCR PAN NOT DETECTED; B. PERTUSSIS- RESP PCR PANEL NOT DETECTED; C. PNEUMONIAE- RESP PCR PANEL NOT DETECTED; CORONAVIRUS 229E-RESP PCR NOT DETECTED; CORONAVIRUS HKU1-RESP PCR NOT DETECTED; CORONAVIRUS NL63-RESP PCR NOT DETECTED; CORONAVIRUS OC43-RESP PCR NOT DETECTED; HUMAN METAPNEUMOVIRUS NOT DETECTED; INFLUENZA A- RESP PCR PANEL NOT DETECTED; INFLUENZA B - RESP PCR PANEL NOT DETECTED; M. PNEUMONIAE- RESP PCR PANEL NOT DETECTED; PARAINFLUENZA VIRUS 1 NOT DETECTED; PARAINFLUENZA VIRUS 2 NOT DETECTED; PARAINFLUENZA VIRUS 3 NOT DETECTED; PARAINFLUENZA VIRUS 4 NOT DETECTED; RHINOVIRUS/ENTEROVIRUS NOT DETECTED; RSV- RESP PCR PANEL NOT DETECTED; SARS-CoV-2 -RESP PCR PANEL NOT DETECTED
--- NOTE | 2022-02-05 14:02 | MRI Report ---
PROCEDURE: BRAIN WO INDICATIONS: expressive aphasia, R sided weakness, resolved TECHNIQUE: Noncontrast axial T1 spin echo, axial T2 fast spin echo, sagittal and axial FLAIR, coronal T2 fast sp in echo, axial gradient echo, axial diffusion and ADC through the brain. COMPARISON: CT head without contrast from the same date, CT angiogram of the head and neck from the same date. FINDINGS: Image quality: Excellent. CSF Spaces: Basal cisterns are patent. No extra-axial fluid collections. Ventricles are normal in size and shape. Brain: No intracranial masses or hemorrhage. [place]/white matter interface is normal. Brainstem appe ars normal. Diffusion-weighted images demonstrate no acute ischemic insult. No chronic ischemic ins ults. Age-related volume loss and moderate small vessel ischemic change. Normal intravascular flow v oids are present. Skull and face: Calvarium has normal marrow signal. Orbits appear normal. Sinuses: Sinuses and mastoids are clear. IMPRESSION: 1. Age-related volume loss and moderate small vessel ischemic change. 2. No evidence acute stroke, hemorrhage, or mass. Reviewed by: Frederic Brunson MD on 02/05/2022 2:00 PM PST Approved by: Frederic Brunson MD on 02/05/2022 2:00 PM PST Station ID: [id number]
[2022-02-05] MEDS: SODIUM CHLORIDE FLUSH 0.9% 10 ML SYRINGE IVP SCH (16:33)
[2022-02-06] MEDS: SODIUM CHLORIDE FLUSH 0.9% 10 ML SYRINGE IVP SCH ×2 (01:00→08:56)
[2022-02-06 05:19] LABS: CHOL/HDL RATIO 2.2 (<5.0); CHOLESTEROL 181 mg/dL; HDL CHOLESTEROL 83 mg/dL; LDL CHOLESTEROL,CALCULATED 84 mg/dL; TRIGLYCERIDES 70 mg/dL; VLDL CHOLESTEROL 14 mg/dL
[2022-02-06] MEDS ORDERED: polyethylene glycoL 3350 17 GM PACKET PO SCH (09:00)
[2022-02-06] MEDS ORDERED: ASPIRIN EC 81 MG TABLET PO SCH (09:00)
--- NOTE | 2022-02-06 09:07 | Discharge Plan ---
Discharge Plan Problem Reviewed?: Yes Disposition: Home, Self Care Condition: Stable Diet: Regular Activity Restrictions: Activity as Tolerated Shower Restrictions: No Driving Restrictions: Yes (no driving) Assistance Devices: Walker Health Concerns: Elbert is an 81-year-old male who has dementia and lives With his caregiver/. He has known gait ataxia and risk factors for stroke include male sex, hypertension, hyperlipidemia. He began having an hour of left body weakness and inability to speak and was brought to the emergency room. A CT of his head was negative for stroke. We consulted with a neurologist and we were getting ready to give medication to dissolve any possible blood clots in his arteries of his brain when his symptoms completely resolved. As such she did not get that medication. MRI of the head was negative. Overnight telemetry to see if his heart was having any irregular rhythms was also without findings. His heart rate was normal. Plan of Treatment: 1. He needs to be started on a medication to make his platelets thinner. This helps reduce risk of stroke. So he has been started on an aspirin and that should be taken every day. 2. The 1 test that we could not do while he was here was something called an ultrasound of the heart/echocardiogram. If you could please have his primary care provider order that for him. 3. Please see his primary care provider in follow-up in the next 1 to 2 weeks. Please let her know that his cholesterol panel had a cholesterol of 181, LDL 84, HDL 83. That is important because sometimes people get put on cholesterol drugs to reduce risk of stroke. His cholesterol is already low enough that he probably does not need that. Care Goals: At this time, rates dementia has progressed to the point that he will be transitioned to a nursing home in [place] in March 2022. He will be living at that nursing home indefinitely. Assessment: Because the patient has dementia, care plan and follow-through are guided by his . No Smoking: If you smoke, Please STOP! Call for help. Follow-up with: Chika Laureano ARNP [Credentialed Staff Provider] -
--- NOTE | 2022-02-06 11:33 | PHARMACY PROGRESS NOTE ---
- Best Possible Medication History Admit Date and Time: 02/05/22 1239 Processed by: Pharmacy Medication History completed: Yes As the person ultimately responsible for medication therapy, providers are able to order a medication from an existing home medication list in [facility] via the "Reconcile Routine" prior to Confirmation of that medication by director sales support. Such practice is discouraged except when the physician, in their clinical judgment, deems that a medical need exists for a medication without regard to previous use.
[2022-02-06 13:51] VITALS: BP 108/59
--- NOTE | 2022-02-06 17:58 | DISCHARGE SUMMARY ---
"Discharge Summary Admit Date: 02/05/22 Discharge Date: 02/06/22 Discharging Provider: Yudith Raymond MD Primary Care Provider: [facility] Issa Code Status: Attempt Resuscitation Condition at Discharge: Stable Discharge Disposition: 01 Home, Self Care - DIAGNOSES Discharge Diagnoses with Status of Each Condition: 1. TIA 2. Hypertension 3. Hyperlipidemia 4. Dementia due to Alzheimer's disease 5. Chronic gait ataxia - HPI History of Present Illness: Elbert is an 81yo male with a history significant for hypertension, hyperlipidemia, and a positive family history for stroke. He was brought to the ED by EMS for right sided weakness, he was unable to speak. The ED workup included a head CT, Angiogram of the head and neck. When he returned to the ED from CT his symptoms had completely resolved. He was given an aspirin in the ED, telestroke was consulted and recommended observation tonight, MRI and TIA workup. Head CT: no CT evidence of acute process, age related cortical volume loss and microvascular ischemic changes Head CTA: age related volume loss, moderate small vessel ischemic change. No evidence of acute stroke, hemorrhage, or mass. Unremarkable for stenosis, aneurysm, occlusion or focal filling defect. Neck CTA: mild bilateral less than 50% calcified proximal internal carotid artery stenoses. ectopic location of cervical left carotid, medially deviated, directly anterior to C2 and C3 vertebral bodies His medical history includes dementia, chronic gait ataxia, chronic osteoarthritis, gout, BPH, deafness, obstructive sleep apnea, chronic chlorine gas inhalation. I was able to get his history from his , as Elbert's dementia has progressed so much that he was completely unaware of where he was or why he was here when I spoke with him. His says he has never had symptoms like this before. She denies that he complained of any associated symptoms including nausea, vomiting, headache, seizure, fall, head injury. His [facility] dizziness is treated with Antivert. His BPH is managed with finasteride and his hypertension is managed with amlodipine. His has been told that his dementia might be attributed to the fact that he has had 7 hip surgeries that he was under anesthesia for hours at a time each surgery. He was a heavy drinker until his 60s, his said he used to drink Whisky but she could not remember about how many drinks per day he would have at that time. Now he drinks one glass of wine per night. His short term memory loss started in his mid 70s, worse by age 76. It manifested as irritability and long and short term memory loss. He was evaluated by the [facility] neurology as well as neuropsych testing October 2017 at [facility]. There was no clear evidence of neurodegenerative disorder with fairly intact cognition at that time. He started on Donazepil October 2020 and he was referred to memory and brain wellness center at [facility] November 2020. There is no report in his chart on the outcome of that referral. His says that in March 2022 lEbert is moving to a group home in [place], and his will be going to [place] for three months to decompress. She has been his screenplay writer learning coordinator since his dementia started around 70 years ago. - Past Medical History Cardiovascular: reports: Hypertension, High cholesterol Respiratory: reports: Sleep apnea (manifested by daytime sleepiness and snoring. 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 Umbilical hernia repair.) HEENT: reports: Tonsil/Adenoidectomy - CONSULTS | PROCEDURES Procedures: 1. CT of the head that showed atrophy but no acute stroke. Angiogram without significant stenosis 2. MRI also with atrophy but no stroke. Echocardiogram not able to be done due to lack of ergonomics technician availability. We will need echo scheduled in the outpatient setting. Overnight telemetry without any arrhythmias. - HOSPITAL COURSE Hospital Course: Patient was placed on telemetry overnight. Given an aspirin. Blood pressure monitor. His main problem was dementia with impulsivity. All of his symptomatology with regards to body weakness and expressive aphasia had resolved by the time he got to [facility]. MRI did not show any new strokes. Telemetry without any arrhythmias. He will need to get an echocardiogram in the outpatient setting. He is discharged in stable condition. Recognizes his daughter and his in the room. But does not know where he is or why he is here. Temperature is 36.4. Heart rate 73. Blood pressure 108/59. Respirations 18. 97% on room air. He is an alert gentleman. Follows commands. Can be very impulsive. But can be prompted. Neck is without bruits and is supple. Lungs are clear to auscultation and percussion. No crackles rhonchi wheezing or increased respiratory effort. He has a regular rate and rhythm. Abdomen is soft, nontender, normal bowel sounds. He was feeding himself breakfast lunch and din ner without any difficulty. Extremities are without edema. When he stands he has ataxia and needs standby assist. is concerned about him being a fall risk. But his fall risk is no greater now than it was when he was at home before admission. Her plan is to place him in a [facility]p facility or assisted living facility in March of this year. I have asked her to make sure he follows up with his primary care provider. The echocardiogram needs to be ordered. I would leave it up to the primary care provider's discretion about whether this gentleman needs a statin or not. But his triglycerides are 70, cholesterol 181, LDL 84, and HDL 83. He is discharged on an aspirin. His amlodipine 5 mg a day should be continued. - ALLERGIES Allergies/Adverse Reactions: Allergies Allergy/AdvReac Type Severity Reaction Status Date / Time Sulfa (Sulfonamide Allergy Unknown Verified 12/17/20 05:44 Antibiotics) - MEDICATIONS Home Medications: Ambulatory Orders Medication Instructions Recorded Confirmed Finasteride [Proscar] 5 mg PO DAILY 02/05/22 02/05/22 amLODIPine [Norvasc] 5 mg PO DAILY 02/05/22 02/05/22 Acetaminophen [Tylenol] 650 mg PO Q4HR PRN tab 02/06/22 - LABS Result Diagrams: 02/05/22 11:32 02/05/22 11:32 - SEPSIS Current Stage of Sepsis: Ruled out"
== END 2022-02-06 13:30 | disposition home or self-care (01) ==
LOC: EDBD → EDUNIT# → ED 11:25 → MS2 12:39
PROVIDERS: ADMIT Specialist; ATTEND Specialist
DX: G45.9 Transient cerebral ischemic attack, unspecified (principal); I10 Essential (primary) hypertension; I45.2 Bifascicular block; R47.01 Aphasia; R53.1 Weakness; M19.90 Unspecified osteoarthritis, unspecified site; R26.0 Ataxic gait; M10.9 Gout, unspecified; H91.90 Unspecified hearing loss, unspecified ear; G47.33 Obstructive sleep apnea (adult) (pediatric); R42 Dizziness and giddiness; E78.00 Pure hypercholesterolemia, unspecified; N40.1 Benign prostatic hyperplasia with lower urinary tract symptoms; N39.498 Other specified urinary incontinence; G30.9 Alzheimer's disease, unspecified; F02.80 Dementia in other diseases classified elsewhere, unspecified severity, without behavioral disturbance, psychotic disturbance, mood disturbance, and anxiety; I65.23 Occlusion and stenosis of bilateral carotid arteries; Z20.822 Contact with and (suspected) exposure to COVID-19; Z66 Do not resuscitate; Z79.899 Other long term (current) drug therapy; Z82.3 Family history of stroke; Z82.49 Family history of ischemic heart disease and other diseases of the circulatory system; Z87.891 Personal history of nicotine dependence; Z87.898 Personal history of other specified conditions; Z96.649 Presence of unspecified artificial hip joint; Z98.890 Other specified postprocedural states
CPT/HCPCS: 36415; 70450; 70496; 70498; 70551; 80053; 80061; 83690; 85025; 85610; 87633; 93005; 99283; 99285; A9270; G0378; Q9967; 83721

== ENCOUNTER 2023-03-07 07:48 | Outpatient (CLI) | payer MEDICARE, OTHER | END 2023-03-07 23:59 | disposition EMS.NT | LOC: EMS 07:48 | DX: R53.1 Weakness (principal) ==

== ENCOUNTER 2023-08-20 11:23 | Outpatient (CLI) | payer MEDICARE, OTHER | END 2023-08-20 23:59 | disposition EMS.NT | LOC: EMS 11:23 | DX: M79.18 Myalgia, other site (principal); W10.8XXA Fall (on) (from) other stairs and steps, initial encounter; Y92.008 Other place in unspecified non-institutional (private) residence as the place of occurrence of the external cause ==